=== PATIENT | female | born 1995 | race Caucasian/White ===

== ENCOUNTER 2020-12-13 08:27 | Emergency (ER) | payer MEDICAID ==
[~2020-12-13] VITALS: Ht 157.5 cm; Wt 88.0 kg
[2020-12-13] MEDS ORDERED: CEPH250C2 MT (09:04)
[2020-12-13 09:07] LABS: CLARITY URINE TURBID (CLEAR); COLOR URINE YELLOW (YELLOW); KETONES URINE NEGATIVE (NEGATIVE); LEUKOCYTE ESTERASE URINE 3+ (NEGATIVE); NITRITE URINE POSITIVE (NEGATIVE); OCCULT BLOOD URINE 1+ (NEGATIVE); PH URINE 6.5 (4.5-8.0); PROTEIN URINE NEGATIVE (NEGATIVE); SPECIFIC GRAVITY URINE 1.017 (1.005-1.030)
[2020-12-13 09:40] LABS: HCG SCREEN NEGATIVE
[2020-12-13] MEDS ORDERED: CEPHALEXIN 250MG CAPSULE PO ONE (10:15)
[2020-12-13 10:29] VITALS: BP 105/69
== END 2020-12-13 10:32 | disposition home or self-care (01) ==
LOC: ER 08:27
DX: N39.0 Urinary tract infection, site not specified (principal)
CPT/HCPCS: 81003; 81025; 84703; 87077; 87086; 87186; 99283; Z7610

== ENCOUNTER 2021-06-10 17:24 | Emergency (ER) | payer MEDICAID ==
[~2021-06-10] VITALS: Ht 154.9 cm; Wt 84.0 kg
[~2021-06-10 17:24] MED LIST: CEPH250C2 MT
[2021-06-10 17:29] VITALS: BP 133/79
[2021-06-10] MEDS ORDERED: ACETAMINOPHEN 325MG TABLET PO ONE (21:00)
[2021-06-10 21:57] LABS: CLARITY URINE TURBID (CLEAR); COLOR URINE YELLOW (YELLOW); KETONES URINE NEGATIVE (NEGATIVE); LEUKOCYTE ESTERASE URINE 2+ (NEGATIVE); NITRITE URINE NEGATIVE (NEGATIVE); OCCULT BLOOD URINE NEGATIVE (NEGATIVE); PROTEIN URINE NEGATIVE (NEGATIVE); SPECIFIC GRAVITY URINE 1.019 (1.005-1.030); UROBILINOGEN URINE 0.2 E.U./dL (0.2-1.0)
== END 2021-06-11 | disposition left against medical advice (07) ==
LOC: ER 17:24
DX: N39.0 Urinary tract infection, site not specified (principal); J06.9 Acute upper respiratory infection, unspecified; Z79.899 Other long term (current) drug therapy
CPT/HCPCS: 81003; 93005; 99284